=== PATIENT | male | born 1985 | race African-American/Black ===

== ENCOUNTER 2019-06-29 20:28 | Emergency (ER) | payer BC, MEDICAID ==
[2019-06-29 20:34] VITALS: BP 106/92
--- NOTE | 2019-06-29 21:06 | ED ---
HPI Febrile Illness - HPI Summary HPI Summary: This patient is a 34 year old male presenting to [facility] with a chief complaint of perceived fever since one week ago. The patient reports chills and cough for the last week. He said he wanted to see if his blood pressure is high. He states his chills are intermittent. He denies chest pain, SOB, N/V/D. He states he took Dayquil in the morning and the evening for his symptoms. - History of Current Complaint Chief Complaint: EDFever Time Seen by Provider: 06/29/19 20:56 Hx Obtained From: Patient Onset/Duration: Started Weeks Ago Pain Intensity: 0 Pain Scale Used: 0-10 Numeric - Allergy/Home Medications Allergies/Adverse Reactions: Allergies Allergy/AdvReac Type Severity Reaction Status Date / Time No Known Allergies Allergy Verified 12/13/18 09:31 Home Medications: Home Medications Metformin HCl 500 mg PO DAILY 06/29/19 [History Confirmed 06/29/19] PMH/Surg Hx/FS Hx/Imm Hx Endocrine/Hematology History: Reports: Hx Diabetes Cardiovascular History: Denies: Hx Hypertension Infectious Disease History: No Infectious Disease History: Denies: Traveled Outside the [place] in Last 30 Days - Family History Known Family History: Negative: Respiratory Disease - Social History Alcohol Use: Occasionally Hx Substance Use: No Substance Use Type: Reports: None Hx Tobacco Use: No Smoking Status (MU): Light Every Day Tobacco Smoker Review of Systems - ROS Summary Review of Systems Summary: Metformin HCl 500 mg PO DAILY 06/29/19 [History Confirmed 06/29/19] Positive: Fever - Perceived, Chills Negative: Chest Pain Positive: Cough. Negative: Shortness Of Breath Negative: Vomiting, Diarrhea, Nausea All Other Systems Reviewed And Are Negative: Yes Physical Exam - Summary Physical Exam Summary: General: Well-developed, Well-nourished MALE. No acute distress. HEENT: Normocephalic, Atraumatic. Upper airway congestion. Eyes: Conjuctiva normal, PERRL. Ears: TMs within normal limits. Nares: (-) discharge, (-) erythema. Oropharynx: Clear, mucous membranes moist, (-) exudates. Neck: Soft, FROM, (-) lymphadenopathy, (-) thyromegaly, (-) JVD. Cardiovascular: Normal sinus rhythm, (-) murmur. Lungs: Clear to auscultation bilaterally (-) wheezes, (-) rales, (-) rhonchi. Abdomen: Soft, non-tender, non-distended, (-) organomegaly, normal bowel sounds. Back: (-) CVA tenderness Extremities: No edema. Skin: Warm, dry, (-) rash. Neuro: Alert and oriented x3, no focal deficits. Psychiatric: Mood normal, affect normal. Triage Information Reviewed: Yes Vital Signs On Initial Exam: Initial Vitals Temp Pulse Resp BP Pulse Ox 98.6 F 127 20 106/92 96 06/29/19 20:30 06/29/19 20:30 06/29/19 20:30 06/29/19 20:30 06/29/19 20:30 Vital Signs Reviewed: Yes Procedures - Sedation Patient Received Moderate/Deep Sedation with Procedure: No Diagnostics - Vital Signs Vital Signs Temp Pulse Resp BP Pulse Ox 06/29/19 20:30 98.6 F 127 20 106/92 96 - Laboratory Lab Statement: Any lab studies that have been ordered have been reviewed, and results considered in the medical decision making process. Course/Dx - Course Course Of Treatment: This patient is a 34 year old male presenting to [facility] with a chief complaint of perceived fever since one week ago. Physical exam is unremarkable except for upper airway congestion. A plan for discharge was discussed with the patient and he was agreeable with this plan. - Diagnoses Provider Diagnoses: Viral syndrome Discharge ED - Sign-Out/Discharge Documenting (check all that apply): Patient Departure - Discharge - Discharge Plan Condition: Stable Disposition: HOME Patient Education Materials: Viral Syndrome (ED) Forms: *Work Release Referrals: Luna Shaffer DO [Primary Care Provider] - Additional Instructions: Return to ED with new or worsening symptoms. - Billing Disposition and Condition Condition: STABLE Disposition: Home - Attestation Statements Document Initiated by Scribe: Yes Documenting Scribe: Rodriguez Vega Provider For Whom Kathryn is Documenting (Include Credential): Janay Whitehead MD Scribe Attestation: Rodriguez Delacruz, scribed for Janay Whitehead MD on 06/29/19 at 2250. Scribe Documentation Reviewed: Yes Provider Attestation: The documentation as recorded by the scribRodriguez marin accurately reflects the service I personally performed and the decisions made by me, Janay Whitehead MD Status of Scribe Document: Viewed
[2019-06-30] MEDS ORDERED: metFORMIN* 500 MG TAB PO SCH (09:00)
== END 2019-06-29 21:19 | disposition home or self-care (01) ==
LOC: ED 20:28
DX: B34.9 Viral infection, unspecified (principal); E11.9 Type 2 diabetes mellitus without complications; F17.200 Nicotine dependence, unspecified, uncomplicated; Z79.84 Long term (current) use of oral hypoglycemic drugs
CPT/HCPCS: 99282

== ENCOUNTER 2019-07-16 23:25 | Emergency (ER) | payer OTHER ==
--- NOTE | 2019-07-17 01:16 | ED ---
Throat Pain/Nasal Congestion - HPI Summary HPI Summary: Patient complains of left ear discomfort after swimming Monday. Denies pain, fever, sore throat, purulent drainage, change in hearing. - History of Current Complaint Chief Complaint: EDEarPain Time Seen by Provider: 07/17/19 01:15 Hx Obtained From: Patient Onset/Duration: Sudden Onset, Lasting Days Severity: Mild Associated Signs And Symptoms: Positive: Negative Cough: None - Allergies/Home Medications Allergies/Adverse Reactions: Allergies Allergy/AdvReac Type Severity Reaction Status Date / Time No Known Allergies Allergy Verified 07/16/19 23:34 PMH/Surg Hx/FS Hx/Imm Hx Endocrine/Hematology History: Denies: Hx Anticoagulant Therapy Cardiovascular History: Denies: Hx Pacemaker/ICD History: Denies: Hx Dialysis Sensory History: Denies: Hx Eye Prosthesis Opthamlomology History: Denies: Hx Legally Blind EENT History: Denies: Hx Deafness Neurological History: Denies: Hx Dementia Infectious Disease History: No Infectious Disease History: Denies: Traveled Outside the [place] in Last 30 Days - Family History Known Family History: Positive: Non-Contributory - Social History Alcohol Use: Occasionally Hx Substance Use: No Hx Tobacco Use: No Review of Systems Constitutional: Negative Eyes: Negative Positive: Ear Ache Cardiovascular: Negative Respiratory: Negative Gastrointestinal: Negative Genitourinary: Negative Musculoskeletal: Negative Skin: Negative Neurological: Negative Psychological: Normal All Other Systems Reviewed And Are Negative: Yes Physical Exam Triage Information Reviewed: Yes Vital Signs On Initial Exam: Initial Vitals Temp Pulse Resp BP Pulse Ox 98.8 F 81 16 116/80 98 07/16/19 23:33 07/16/19 23:33 07/16/19 23:33 07/16/19 23:33 07/16/19 23:33 Vital Signs Reviewed: Yes Appearance: Positive: Well-Appearing Skin: Positive: Warm Head/Face: Positive: Normal Head/Face Inspection Eyes: Positive: Normal ENT: Positive: Normal ENT inspection, Other - Left ear packed with ear wax Neck: Positive: Supple Respiratory/Lung Sounds: Positive: Clear to Auscultation Cardiovascular: Positive: Normal Abdomen Description: Positive: Nontender Musculoskeletal: Positive: Normal Neurological: Positive: Normal Psychiatric: Positive: Normal AVPU Assessment: Alert - John Coma Scale Best Eye Response: 4 - Spontaneous Best Motor Response: 6 - Obeys Commands Best Verbal Response: 5 - Oriented Coma Scale Total: 15 Procedures - Sedation Patient Received Moderate/Deep Sedation with Procedure: No Diagnostics - Vital Signs Vital Signs Temp Pulse Resp BP Pulse Ox 07/16/19 23:33 98.8 F 81 16 116/80 98 - Laboratory Lab Statement: Any lab studies that have been ordered have been reviewed, and results considered in the medical decision making process. EENT Course/Dx - Course Course Of Treatment: Patient complains of left ear discomfort after swimming Monday. Denies pain, fever, sore throat, purulent drainage, change in hearing. Vital signs within normal limits. Earwax removed with Colace, hydrogen peroxide and flushing. Patient symptoms resolved. - Diagnoses Provider Diagnoses: Water in ear Discharge ED - Sign-Out/Discharge Documenting (check all that apply): Patient Departure - Discharge Plan Condition: Stable Disposition: HOME Patient Education Materials: Earache (ED) Referrals: Octaviano Jean MD [Primary Care Provider] - Additional Instructions: Follow-up with primary care. - Billing Disposition and Condition Condition: STABLE Disposition: Home
[2019-07-17] MEDS ORDERED: Docusate LIQ* 100 MG/10 ML UDC PO ONE (01:20)
[2019-07-17 02:28] VITALS: BP 122/75
== END 2019-07-17 02:20 | disposition home or self-care (01) ==
LOC: ED 23:25 → MERGE 23:25 → ED 07-17 02:27
DX: H60.332 Swimmer's ear, left ear (principal)
CPT/HCPCS: 99281; A9270-GY